=== PATIENT | female | born 1960 | race Caucasian/White ===

== ENCOUNTER 2018-01-08 11:19 | Day surgery (SDC) | payer OTHER ==
[2018-01-07 08:28] VITALS: BMI 31.8
[~2018-01-08 11:19] MED LIST: ONDANSETRON 4 MG/2 ML VIAL IVPUSH PRN; oxyCODONE HCL 5 MG TABLET PO PRN
[2018-01-08] MEDS ORDERED: DEXAMETHASONE SOD PHOSPHATE/PF 10 MG/ML SDV ONE (11:21)
[2018-01-08] MEDS ORDERED: ROPIVACAINE HCL 0.5% 30ML VIAL ONE (11:22)
[2018-01-08] MEDS ORDERED: MIDAZOLAM HCL 2 MG/2 ML SINGLE DOSE VIAL ONE ×2 (11:23)
[2018-01-08] MEDS ORDERED: LACTATED RINGERS SOLUTION 1,000 ML IV SCH ×2 (11:30→14:15)
--- NOTE | 2018-01-08 11:49 | HP ---
Satellite [facility] - Chief Complaint Chief Complaint: right shoulder pain - Past Medical History Allergies/Adverse Reactions: Allergies Allergy/AdvReac Type Severity Reaction Status Date / Time No Known Drug Allergies Allergy Verified 01/07/18 08:28 - Current Medications Current Medications: Home Medications Medication Instructions Recorded Duloxetine HCl [Cymbalta] 60 mg PO HS 01/17/16 Zolpidem Tartrate [Ambien] 10 mg PO HS 01/17/16 Ibuprofen [Motrin -] 800 mg PO PRN PRN 01/07/18 Hydrocodone/Acetaminophen [[place] 1 each PO Q6H PRN #40 tablet MDD 4 01/08/18 5-325 Tablet] Satellite Physical Exam - Physical Examination General Appearance: Well Nourished, Well Developed, Alert & Oriented x3 ENT: Clear Lung: Normal air movement Heart: Regular rate & rhythm Extremities: Other (right shoulder- + ttp, decr rom, + empty can, + neer,+ putnam, nvi MRI +RCT) Neurological: Intact, Alert, Oriented Satellite Impression/Plan - Impression/Plan Impression: right shoulder rct Operative Procedure: right shoulder arthroscopy with RCR, SAD Date to be Performed: 01/08/18
[2018-01-08 11:55] LABS: URINE APPEARANCE CLEAR; URINE BILIRUBIN NEGATIVE (<2.0 mg/dL); URINE COLOR YELLOW; URINE GLUCOSE (UA) NEGATIVE (NEGATIVE); URINE KETONE NEGATIVE (NEGATIVE); URINE LEUK ESTERASE NEGATIVE (NEGATIVE); URINE NITRITE NEGATIVE (NEGATIVE); URINE PROTEIN NEGATIVE (NEGATIVE); URINE UROBILINOGEN NEGATIVE mg/dL (0.2-1.0)
[2018-01-08] MEDS ORDERED: ROCURONIUM BROMIDE 50 MG/5 ML VIAL ONE (12:41)
[2018-01-08] MEDS ORDERED: PROPOFOL 20 ML ONE (12:41)
[2018-01-08] MEDS ORDERED: ceFAZolin 2 GRAM PREMIX BAG IVPB ONE (12:58)
[2018-01-08] MEDS ORDERED: DEXAMETHASONE SOD PHOSPHATE 4 MG/1 ML VIAL ONE (13:05)
--- NOTE | 2018-01-08 13:52 | OP ---
Operative Note - Note: Operative Date: 01/08/18 Pre-Operative Diagnosis: right shoulder impingement, RTC tear Operation: right shoulder arthroscopy, decompression, distal clavicle excision, arthroscopic RTC repair Implants: Arthrex Swivel Lock anchors x 2, fiber wire x 5 Surgeon: Jose Jauregui Photo Lab Manager: Jensen Novak Anesthesiologist/AUTOMOTIVE LUBE TECHNICIAN: Jazlyn Gloria Anesthesia: General Specimens Removed: shavings Estimated Blood Loss (mls): 25 Drains, Volume Out (mls): 0 Blood Volume Replaced (mls): 0 Fluid Volume Replaced (mls): 500 Operative Report Dictated: Yes
[2018-01-08] MEDS ORDERED: ONDANSETRON 4 MG/2 ML VIAL IVPUSH PRN (14:11)
[2018-01-08] MEDS ORDERED: PROMETHAZINE HCL 25 MG/1 ML VIAL IVPB PRN (14:11)
--- NOTE | 2018-01-08 14:42 | OP ---
DATE OF OPERATION: 01/08/2018 PREOPERATIVE DIAGNOSES: Right shoulder impingement syndrome and rotator cuff tear. POSTOPERATIVE DIAGNOSES: Right shoulder impingement syndrome and rotator cuff tear. PROCEDURE: Right shoulder arthroscopy, subacromial decompression, distal clavicle excision, and arthroscopic rotator cuff repair. SURGEON: Tran Vicente MD PRESENTATION DESIGNER: JOELLE Arriaza ANESTHESIOLOGIST: Jazlyn Gloria CRNA ANESTHESIA: Right interscalene block with LMA anesthesia. DRAINS: None. COMPLICATIONS: None. FLUID REPLACEMENT: 500 mL SPECIMEN: Arthroscopic shavings. BLOOD LOSS: 25 mL BLOOD GIVEN: None. This patient is a 57-year-old female with a preoperative diagnosis of right shoulder impingement syndrome and a rotator cuff tear. After understanding the potential risks, complications, alternatives, and benefits of surgery versus nonsurgical treatment, the patient elected to undergo this procedure. Patient was brought to the operating room. Peripheral IV placed. IV sedation given. Two grams of IV Ancef were given, and a right interscalene block was performed. LMA anesthesia was used. She was placed into the beach chair position with ample padding throughout. The right upper extremity was prepped and draped in sterile fashion. The bony landmarks were marked out with a marking pen. A posterior portal was established. A diagnostic arthroscopy was performed. The patient was seen to have good humeral head and glenoid. There was no significant osteoarthritis. The labrum was only a little bit frayed. The biceps tendon was intact. The biceps anchor looked good. Patient had a clear, full-thickness rotator cuff supraspinatus tear. Next, our attention turned to the subacromial space. The patient had a moderate amount of inflammatory bursitis. A lateral portal was established under direct visualization using a spinal needle, a number 15 scalpel blade, and a Green cannula was introduced through the subacromial space. A soft tissue bursectomy/extensive debridement was done with the ArthroCare wand. After the debridement, this revealed a large subacromial and large subclavicular spurs. These were both taken down with the 5.5-mm oval margie. It was then fine tuned in reverse and with a shaver. After the bony subacromial decompression, there was much more room. The arm was put through a full range of motion. There were no points of impingement in the rotator cuff. Patient had a clear, full-thickness, crescent-shaped tear of the entire supraspinatus coming off the humeral head. Grasper was used. It was quite mobile. The landing bed on the humeral head was mildly decorticated with a shaver and rasp. Next, under direct visualization using the Intervolve needle passer, 5 FiberWires were placed. The 4 anterior tails were placed through a SwiveLock and put down into the humeral head and the posterior 6 tails the same for a total of 5 FiberWires and 2 SwiveLocks. The arm was put through a range of motion. Overall, it looked quite good. It all came down as a unit into the humeral head quite well. The area was copiously irrigated and washed out. All instrumentation removed. All excess saline removed. The arthroscopy portals were closed with 3-0 nylon suture. The area was then washed and dried, covered with an Aquacel dressing, and the patient's arm was put into a shoulder immobilizer. She was extubated, brought down out of the beach chair position, brought to the ambulatory recovery room in stable condition. The patient was stable throughout the case. Blood loss 25 mL. Total operative time was 50 minutes. TRAN VICENTE M.D. [id number]
[2018-01-08 16:09] VITALS: TEMP 97.4
[2018-01-08 17:05] VITALS: BP 124/85; PULSE 95
--- NOTE | 2018-01-10 17:12 | PATH ---
Surgical Pathology Report Patient Name: RICKI BRAXTON Med. Rec. #: [id number] /Age/Gender: 1960 (Age: 57) / F Account: [id number] Location: [facility] Taken: 01/08/2018 Received: 01/09/2018 Reported: 01/10/2018 Physicians: Jose Jauregui M.D. Specimen(s) Received RIGHT SHOULDER SHAVINGS Clinical History Right shoulder tear Final Diagnosis SHOULDER SHAVINGS, RIGHT, ARTHROSCOPY: FRAGMENTS OF BENIGN CARTILAGE, DENSE FIBROCONNECTIVE TISSUE, BONE, ADIPOSE TISSUE, REACTIVE SYNOVIUM, AND SKELETAL MUSCLE. Electronically Signed Leidy Bird M.D. Gross Description Received in formalin, labeled "right shoulder shavings," is a 4.5 x 4.0 x 0.6 cm. aggregate of billings-yellow soft tissue fragments. A human resources representative portion is submitted in one cassette. /01/09/2018 saudi01/09/2018
== END 2018-01-08 17:13 | disposition home or self-care (01) ==
LOC: JASU-SURG 11:19
PROVIDERS: ATTEND Orthopaedic Surgery
PROC: 0PB94ZZ Excision of Right Clavicle, Percutaneous Endoscopic Approach (ICD-10-PCS; 2018-01-08)
PROC: 0RNJ4ZZ Release Right Shoulder Joint, Percutaneous Endoscopic Approach (ICD-10-PCS; principal; 2018-01-08 12:30)
PROC: 0LQ14ZZ Repair Right Shoulder Tendon, Percutaneous Endoscopic Approach (ICD-10-PCS; 2018-01-08 12:30)
DX: M75.41 Impingement syndrome of right shoulder (principal); M75.101 Unspecified rotator cuff tear or rupture of right shoulder, not specified as traumatic
CPT/HCPCS: 81003; 88304-TC; 94760

== ENCOUNTER 2022-06-27 08:22 | Day surgery (SDC) | payer OTHER ==
[2022-06-21 15:52] VITALS: BMI 34.0
[2022-06-27] MEDS: CELECOXIB 200 MG CAPSULE PO ONE ×2 (08:58→15:32)
[2022-06-27] MEDS ORDERED: TRANEXAMIC ACID 1000 MG/10 ML VIAL ONE (09:39)
[2022-06-27] MEDS ORDERED: DEXAMETHASONE SOD PHOSPHATE 4 MG/1 ML VIAL ONE (09:39)
[2022-06-27] MEDS ORDERED: ONDANSETRON 4 MG/2 ML VIAL ONE (09:39)
[2022-06-27] MEDS ORDERED: ceFAZolin SODIUM 1 GM VIAL ONE ×2 (09:39→11:09)
[2022-06-27] MEDS ORDERED: KETOROLAC TROMETHAMINE 30 MG/1 ML VIAL ONE (09:39)
[2022-06-27] MEDS ORDERED: MIDAZOLAM HCL 2 MG/2 ML SINGLE DOSE VIAL ONE ×2 (09:40→11:17)
[2022-06-27] MEDS ORDERED: PROPOFOL 60 ML ONE (09:40)
[2022-06-27] MEDS ORDERED: CEFAZOLIN 2 GM in DEXTROSE 5%-WATER - 50 ML IVPB ONE (10:30)
[2022-06-27] MEDS ORDERED: ACETAMINOPHEN 325 MG TABLET (FP) PO PRN (10:32)
[2022-06-27] MEDS ORDERED: ONDANSETRON 4 MG/2 ML VIAL IVPUSH PRN (10:32)
[2022-06-27] MEDS ORDERED: LACTATED RINGERS SOLUTION 1,000 ML IV SCH ×2 (10:45→13:45)
[2022-06-27] MEDS ORDERED: TRANEXAMIC ACID 1000 MG/10 ML VIAL IVPUSH ONE (11:00)
[2022-06-27] MEDS ORDERED: BUPIVACAINE HCL/PF 0.5% (5 MG/ML) 30 ML VIAL IJ ONE (11:03)
[2022-06-27] MEDS ORDERED: ACETAMINOPHEN INJECTION 100 ML IVPB ONE (11:03)
[2022-06-27] MEDS ORDERED: DEXAMETHASONE SOD PHOSPHATE/PF 10 MG/ML SDV ONE (11:03)
[2022-06-27] MEDS ORDERED: VANCOMYCIN 1,000 MG VIAL (RESTRICTED TO ID ONLY) ONE (11:09)
[2022-06-27] MEDS ORDERED: FENTANYL CITRATE/PF 50 MCG/ML VIAL ONE (11:17)
[2022-06-27] MEDS ORDERED: BUPIVACAINE LIPOSOME/PF (EXPAREL) 266 MG/20 ML VIAL ONE (11:17)
[2022-06-27] MEDS ORDERED: BUPIVACAINE HCL/PF 0.5% (5MG/ML) 10 ML VIAL ONE (11:17)
[2022-06-27] MEDS ORDERED: VASOPRESSIN 20 UNITS/ML VIAL IV ONE (12:31)
[2022-06-27] MEDS ORDERED: VANCOMYCIN 1,000 MG VIAL (RESTRICTED TO ID ONLY) IVPB ONE (13:09)
[2022-06-27] MEDS ORDERED: oxyCODONE HCL 5 MG TABLET PO PRN (14:07)
[2022-06-27] MEDS: KETOROLAC TROMETHAMINE 30 MG/1 ML VIAL IVPUSH SCH ×2 (14:17→15:33)
[2022-06-27] MEDS: ACETAMINOPHEN 500 MG TABLET (FP) PO SCH ×2 (17:57→23:41)
[2022-06-27] MEDS: SENNOSIDES/DOCUSATE COMBO (SENNA PLUS) TABLET (UD) PO SCH (21:01)
[2022-06-27] MEDS: CEFAZOLIN SODIUM 2 GM in DEXTROSE 5%-WATER 100 ML IVPB SCH (21:02)
[2022-06-27] MEDS ORDERED: QUEtiapine FUMARATE 25 MG TABLET PO SCH (22:00)
[2022-06-27] MEDS ORDERED: DULoxetine HCL 30 MG CAPSULE.DR PO SCH (22:00)
[2022-06-27] MEDS: oxyCODONE HCL 5 MG TABLET PO PRN (23:40)
[2022-06-28] MEDS: KETOROLAC TROMETHAMINE 30 MG/1 ML VIAL IVPUSH SCH (04:24)
[2022-06-28] MEDS: oxyCODONE HCL 10 MG SUSTAINED ACTING TABLET PO SCH ×2 (05:27→09:07)
[2022-06-28] MEDS: CEFAZOLIN SODIUM 2 GM in DEXTROSE 5%-WATER 100 ML IVPB SCH (05:28)
[2022-06-28] MEDS: oxyCODONE HCL 5 MG TABLET PO PRN ×2 (07:40→13:29)
[2022-06-28] MEDS: ACETAMINOPHEN 500 MG TABLET (FP) PO SCH ×2 (07:44→13:29)
[2022-06-28] MEDS ORDERED: ASPIRIN 325 MG TABLET PO SCH (08:00)
[2022-06-28 08:48] LABS: HEMATOCRIT 29.8 % (32.4-45.2); HEMOGLOBIN 10.1 G/dL (10.7-15.3); MCHC 33.9 g/dl (32.0-36.0); MEAN CELL VOLUME 91.5 fl (80-96); MEAN PLT VOLUME 7.9 fl (7.5-11.1); RBC 3.26 10^6/uL (3.60-5.2); RDW 13.5 % (11.6-15.6); WHITE BLOOD COUNT 15.1 10^3/uL (4.0-10.8)
[2022-06-28] MEDS: SENNOSIDES/DOCUSATE COMBO (SENNA PLUS) TABLET (UD) PO SCH (09:07)
[2022-06-28 10:00] VITALS: BP 110/58
[2022-06-28] MEDS ORDERED: PANTOPRAZOLE 40 MG TABLET PO SCH (10:00)
[2022-06-28] MEDS ORDERED: MULTIVITAMINS (DAILY MVI) TABLET (FP) PO SCH (10:00)
[2022-06-28 15:43] VITALS: PULSE 107; RESP 18; TEMP 98.3
== END 2022-06-28 15:30 | disposition home health service (06) ==
LOC: FASUSAT 08:22 → FM/S 15:11 → FASUSAT 06-28 15:30
PROVIDERS: ATTEND Orthopaedic Surgery
PROC: 8E0Y0CZ Robotic Assisted Procedure of Lower Extremity, Open Approach (ICD-10-PCS; 2022-06-27)
PROC: 0SRC0J9 Replacement of Right Knee Joint with Synthetic Substitute, Cemented, Open Approach (ICD-10-PCS; principal; 2022-06-27 12:13)
DX: M17.11 Unilateral primary osteoarthritis, right knee (principal); I50.9 Heart failure, unspecified; I25.10 Atherosclerotic heart disease of native coronary artery without angina pectoris; J44.9 Chronic obstructive pulmonary disease, unspecified; Z87.891 Personal history of nicotine dependence
CPT/HCPCS: 20985; 27447; C1776; S2900; 36415; 73560-TC-RT-FY; 85027; 94760; 97010-GP; 97116-GP; 97162-GP; C1713; C1889

== ENCOUNTER 2023-04-06 04:33 | Day surgery (SDC) | payer OTHER ==
[2023-04-06] MEDS ORDERED: BUPIVACAINE HCL/PF 0.25% (2.5MG/ML) 10 ML VIAL ONE (07:45)
[2023-04-06] MEDS ORDERED: TRIAMCINOLONE ACET 40MG/1ML VIAL ONE (07:45)
[2023-04-06] MEDS ORDERED: LIDOCAINE HCL/PF 1% SDV 5ML VIAL ONE (07:45)
[2023-04-06] MEDS ORDERED: BUPIVACAINE HCL/PF 0.5% (5MG/ML) 10 ML VIAL ONE (07:45)
[2023-04-06] MEDS ORDERED: ACETAMINOPHEN 500 MG TABLET (FP) PO PRN (09:58)
[2023-04-06 13:23] VITALS: BMI 28.3
[2023-04-06] MEDS ORDERED: LIDOCAINE HCL 1% PRESERVATIVE FREE - 30ML VIAL IJ ONE (13:59)
[2023-04-06] MEDS ORDERED: IOHEXOL 180 MG/1 ML ML IJ ONE (14:00)
[2023-04-06] MEDS ORDERED: BUPIVACAINE HCL/PF 0.5% (5MG/ML) 10 ML VIAL IJ ONE (14:00)
[2023-04-06] MEDS ORDERED: TRIAMCINOLONE ACET 40MG/1ML VIAL IM ONE (14:01)
[2023-04-06 14:12] VITALS: BP 105/53; PULSE 69; RESP 18; TEMP 98.5
== END 2023-04-06 14:36 | disposition home or self-care (01) ==
LOC: JASU-SURG 04:33
PROVIDERS: ATTEND Pain Medicine Pain Medicine
PROC: 3E0U3BZ Introduction of Anesthetic Agent into Joints, Percutaneous Approach (ICD-10-PCS; 2023-04-06)
PROC: 3E0U33Z Introduction of Anti-inflammatory into Joints, Percutaneous Approach (ICD-10-PCS; principal; 2023-04-06 14:30)
DX: M16.12 Unilateral primary osteoarthritis, left hip (principal)
CPT/HCPCS: 76000-TC-FY